=== PATIENT | female | born 1980 | race Hispanic/Latino ===

== ENCOUNTER 2023-10-25 10:06 | Emergency (ER) | payer SELFPAY ==
--- OUTSIDE RECORDS SUMMARY | 2023-10-25 10:10 | XMS REPORT | Continuity of Care Document ---
Author Name Unknown Address [address] [facility] [address] [place] [address] [facility] thconnect Address [address] [facility]. [address] [place] [address] Care Team Providers Care Live In Housekeeper Name Role Phone MERVAT SOLIS Primary Care Physician Unav ailable MAYA GARNETT Attending Clinician Unavailable Maya Garnett MD Attending Clinician [phone] MERVAT SOLIS Attending Clinician Unavail able Nurse, Oscar Rmchp Exp Cprit Obgyn Attending Clini girish Unavailable Irma WHMervat KATZ Attending Clinician + MAGGIE BLACKWOOD Attending Clinician Unavaila ble Doctor Unassigned, [place] Attending Clinician U navailable LEIF RICHARDSON Attending Clinician Unavailable Oscar Parkinson Db [facility] Attending Clinician Unavailab le Ebrahim VICE PRESIDENT FOR PHILANTHROPYLeif Fowler Attending Clinician NORA VALERA Attending Clinician Unavailable JONA KEITH Attending Clinician Unavailable Blair PAC, Camille S Attending Clinician CAMILLE BLAIR S Attending Clinician Unavailable MERVAT SOLIS Admitting Clinician Unavail able Payers Payer Name Policy Type Policy Number Effective Date Expirati on Date Source [id number] 2021 00:00:00 Problems Condition Name Condition Details Condition Category Status Onset Date Resolution Date Last Treatment Date Treating Clinician Comments Source Need for HPV vaccinatio n Need for HPV vaccinatio n Disease Active 07-19 00:00: 00 [facility] Other general counseling and advice for contracept jesus management Other general counseling and advice for contracept jesus management Disease Active 09-14 00:00: 00 [facility] Obesity (BMI 30-39.9) Obesity (BMI 30-39.9) Disease Active 09-14 00:00: 00 [facility] Elevated blood pressure reading without diagnosis of hypertensi on Elevated blood pressure reading without diagnosis of hypertensi on Disease Active 09-14 00:00: 00 [facility] Allergies, Adverse Reactions, Alerts Allergy Name Allergy Type Status Severity Reaction(s) Onset Date Inactive Date Treating Clinician Comments Source NO KNOWN ALLERGIE S Drug Class Active [facility] Social History Social Habit Start Date Stop Date Quantity Comments Source Gender identity [facility] Sexual orientation [facility] Alcohol intake 2023-10-25 00:00:00 2023-10-25 00:00:00 Ex-drinker (finding) [facility] Exposure to SARS-CoV-2 (event) 2022-12-16 00:00:00 2022-12-26 14:25:00 Not sure [facility] Tobacco Comment 2022-10-21 00:00:00 2022-10-21 00:00:00 Vapes daily per pt report [facility] Tobacco use and exposure 2022-10-21 00:00:00 2022-10-21 00:00:00 User of smokeless tobacco [facility] History of Social function 2022-07-29 00:00:00 2022-07-29 00:00:00 [facility] Sex Assigned At 1980 00:00:00 1980 00:00:00 [facility] Smoking Status Start Date Stop Date Source Never smoked tobacco [facility] Medications Ordered Medication Name Filled Medication Name Start Date Stop Date Current Medication? Ordering Clinician Indication Dosage Frequency Signature (SIG) Comments Components Source ibuprofen (IBU) tablet 800 mg 10-24 11:30: 00 10-24 11:24 :00 No 800mg 800 mg, Oral, ONCE, 1 dose, On Mon10/25/23 at 0630, [place] [facility] amoxicillin (TRIMOX) capsule 500 mg 10-24 11:30: 00 10-24 11:24 :00 No 500mg 500 mg, Oral, ONCE, 1 dose, On Mon10/25/23 at 0630, [place]
Re ason for Anti-Infec tive: Documented Infection< br>Documen adela Infection Site: HEENT
D uration of Therapy: Once (ED) [facility] traMADoL (ULTRAM) 50 mg tablet 10-24 00:00: 00 Yes [id number] 50mg Take 1 tablet by mouth every 6 (six) hours as needed for Pain (scale 7-10). Indication s: acute pain [facility] ibuprofen 800 mg tablet 10-24 00:00: 00 Yes [id number] 800mg Take 1 tablet by mouth every 8 (eight) hours as needed for Pain (scale 4-6). [facility] amoxicillin 500 mg capsule 10-24 00:00: 00 Yes [id number] 500mg Take 1 capsule by mouth in the morning and 1 capsule at noon and 1 capsule in the evening. [facility] etonogestre L (NEXPLANON) implant 68 mg 12-26 21:00: 00 12-26 20:31 :00 No [id number] [facility] 400 mg tablet 10-25 00:00: 00 11-05 04:59 :00 No [id number] 400mg Take 1 tablet by mouth in the morning and 1 tablet at noon and 1 tablet in the evening. Do all this for 10 days. [facility] medroxyPROG ESTERone (DEPO-PROVE RA) syringe 150 mg 10-21 17:00: 00 10-21 16:28 :00 No [id number] [facility] cephALEXin (KEFLEX) 500 mg capsule 10-21 00:00: 00 11-01 04:59 :00 No [id number] 500mg Take 1 capsule by mouth 4 (four) times daily for 10 days. [facility] medroxyPROG ESTERone (DEPO-PROVE RA) syringe 150 mg - 16:00: 00 07-29 15:22 :00 No [id number] 150mg [facility] metroNIDAZO LE 500 mg tablet 09-21 00:00: 00 Yes [id number] 500mg Take 1 tablet by mouth 2 (two) times daily. [facility] medroxyPROG ESTERone (DEPO-PROVE RA) injection 150 mg 09-14 16:00: 00 08-16 15:59 :00 No [id number] 150mg [facility] amoxicillin -clavulanat e (AUGMENTIN) 875-125 mg per tablet 09-14 00:00: 00 09-25 05:59 :00 No [id number] 1{tbl} Take 1 tablet by mouth 2 (two) times daily for 10 days. [facility] Immunizations Ordered Immunization Name Filled Immunization Name Date Status Comments Source HPV9 2023-02-07 00:00:00 Completed [facility] HPV9 2023-02-07 00:00:00 Completed [facility] HPV9 2022-12-26 00:00:00 Completed [facility] HPV9 2022-12-26 00:00:00 Completed [facility] HPV9 2022-12-26 00:00:00 Completed [facility] HPV9 2022-12-26 00:00:00 Completed [facility] HPV9 2022-12-26 00:00:00 Completed [facility] Influenza Virus Vaccine Quad .5 mL IM 6+ MO 2022-10-21 00:00:00 Completed [facility] Influenza Virus Vaccine Quad .5 mL IM 6+ MO 2022-10-21 00:00:00 Completed [facility] Influenza Virus Vaccine Quad .5 mL IM 6+ MO 2022-10-21 00:00:00 Completed [facility] Influenza Virus Vaccine Quad .5 mL IM 6+ MO 2022-10-21 00:00:00 Completed [facility] Influenza Virus Vaccine Quad .5 mL IM 6+ MO 2022-10-21 00:00:00 Completed [facility] Influenza Virus Vaccine Quad .5 mL IM 6+ MO 2022-10-21 00:00:00 Completed [facility] Influenza Virus Vaccine Quad .5 mL IM 6+ MO 2022-10-21 00:00:00 Completed [facility] Influenza Virus Vaccine Quad .5 mL IM 6+ MO 2022-10-21 00:00:00 Completed [facility] Influenza Virus Vaccine Quad .5 mL IM 6+ MO 2022-10-21 00:00:00 Completed [facility] Influenza Virus Vaccine Quad .5 mL IM 6+ MO 2022-10-21 00:00:00 Completed [facility] Influenza Virus Vaccine Quad .5 mL IM 6+ MO 2022-10-21 00:00:00 Completed [facility] Influenza Virus Vaccine Quad .5 mL IM 6+ MO 2021-09-14 00:00:00 Completed [facility] Influenza Virus Vaccine Quad .5 mL IM 6+ MO 2021-09-14 00:00:00 Completed [facility] Influenza Virus Vaccine Quad .5 mL IM 6+ MO 2021-09-14 00:00:00 Completed [facility] Influenza Virus Vaccine Quad .5 mL IM 6+ MO 2021-09-14 00:00:00 Completed [facility] Influenza Virus Vaccine Quad .5 mL IM 6+ MO 2021-09-14 00:00:00 Completed [facility] Influenza Virus Vaccine Quad .5 mL IM 6+ MO 2021-09-14 00:00:00 Completed [facility] Influenza Virus Vaccine Quad .5 mL IM 6+ MO 2021-09-14 00:00:00 Completed [facility] Influenza Virus Vaccine Quad .5 mL IM 6+ MO 2021-09-14 00:00:00 Completed [facility] Influenza Virus Vaccine Quad .5 mL IM 6+ MO 2021-09-14 00:00:00 Completed [facility] Influenza Virus Vaccine Quad .5 mL IM 6+ MO 2021-09-14 00:00:00 Completed [facility] Influenza Virus Vaccine Quad .5 mL IM 6+ MO 2021-09-14 00:00:00 Completed [facility] Influenza Virus Vaccine Quad .5 mL IM 6+ MO 2021-09-14 00:00:00 Completed [facility] Influenza Virus Vaccine Quad .5 mL IM 6+ MO 2021-09-14 00:00:00 Completed [facility] Influenza Virus Vaccine Quad .5 mL IM 6+ MO 2021-09-14 00:00:00 Completed [facility] Influenza Virus Vaccine Quad .5 mL IM 6+ MO 2021-09-14 00:00:00 Completed [facility] Influenza Virus Vaccine Quad .5 mL IM 6+ MO 2021-09-14 00:00:00 Completed [facility] Influenza Virus Vaccine Quad .5 mL IM 6+ MO 2021-09-14 00:00:00 Completed [facility] SARS-COV-2 COVID-19 MODERNA BOOSTER VACCINE 2021-06-19 00:00:00 Completed [facility] SARS-COV-2 COVID-19 MODERNA 0.25ML BOOSTER VACCINE 2021-06-19 00:00:00 Completed [facility] SARS-COV-2 COVID-19 MODERNA 0.25ML BOOSTER VACCINE 2021-06-19 00:00:00 Completed [facility] SARS-COV-2 COVID-19 MODERNA 0.25ML BOOSTER VACCINE 2021-06-19 00:00:00 Completed [facility] SARS-COV-2 COVID-19 MODERNA 0.25ML BOOSTER VACCINE 2021-06-19 00:00:00 Completed [facility] SARS-COV-2 COVID-19 MODERNA 0.25ML BOOSTER VACCINE 2021-06-19 00:00:00 Completed [facility] SARS-COV-2 COVID-19 MODERNA 0.25ML BOOSTER VACCINE 2021-06-19 00:00:00 Completed [facility] SARS-COV-2 COVID-19 MODERNA 0.25ML BOOSTER VACCINE 2021-06-19 00:00:00 Completed [facility] SARS-COV-2 COVID-19 MODERNA 0.25ML BOOSTER VACCINE 2021-06-19 00:00:00 Completed [facility] SARS-COV-2 COVID-19 MODERNA 0.25ML BOOSTER VACCINE 2021-06-19 00:00:00 Completed [facility] SARS-COV-2 COVID-19 MODERNA 0.25ML BOOSTER VACCINE 2021-06-19 00:00:00 Completed [facility] SARS-COV-2 COVID-19 MODERNA 0.25ML BOOSTER VACCINE 2021-06-19 00:00:00 Completed [facility] SARS-COV-2 COVID-19 MODERNA 0.25ML BOOSTER VACCINE 2021-06-19 00:00:00 Completed [facility] SARS-COV-2 COVID-19 MODERNA 0.25ML BOOSTER VACCINE 2021-06-19 00:00:00 Completed [facility] SARS-COV-2 COVID-19 MODERNA 0.25ML BOOSTER VACCINE 2021-06-19 00:00:00 Completed [facility] SARS-COV-2 COVID-19 MODERNA 0.25ML BOOSTER VACCINE 2021-06-19 00:00:00 Completed [facility] SARS-COV-2 COVID-19 MODERNA 0.25ML BOOSTER VACCINE 2021-06-19 00:00:00 Completed [facility] SARS-COV-2 COVID-19 VACCINE - (MODERNA) 2020-11-21 00:00:00 Completed [facility] SARS-COV-2 COVID-19 VACCINE - (MODERNA) 2020-11-21 00:00:00 Completed [facility] SARS-COV-2 COVID-19 VACCINE - (MODERNA) 2020-11-21 00:00:00 Completed [facility] SARS-COV-2 COVID-19 VACCINE - (MODERNA) 2020-11-21 00:00:00 Completed [facility] SARS-COV-2 COVID-19 VACCINE - (MODERNA) 2020-11-21 00:00:00 Completed [facility] SARS-COV-2 COVID-19 VACCINE - (MODERNA) 2020-11-21 00:00:00 Completed [facility] SARS-COV-2 COVID-19 VACCINE - (MODERNA) 2020-11-21 00:00:00 Completed [facility] SARS-COV-2 COVID-19 VACCINE - (MODERNA) 2020-11-21 00:00:00 Completed [facility] SARS-COV-2 COVID-19 VACCINE - (MODERNA) 2020-11-21 00:00:00 Completed [facility] SARS-COV-2 COVID-19 VACCINE - (MODERNA) 2020-11-21 00:00:00 Completed [facility] SARS-COV-2 COVID-19 VACCINE - (MODERNA) 2020-11-21 00:00:00 Completed [facility] SARS-COV-2 COVID-19 MODERNA VACCINE 2020-09-23 00:00:00 Completed [facility] SARS-COV-2 COVID-19 MODERNA VACCINE 2020-09-23 00:00:00 Completed [facility] SARS-COV-2 COVID-19 MODERNA 12+ YRS VACCINE 2020-09-23 00:00:00 Completed [facility] SARS-COV-2 COVID-19 MODERNA 12+ YRS VACCINE 2020-09-23 00:00:00 Completed [facility] SARS-COV-2 COVID-19 MODERNA 12+ YRS VACCINE 2020-09-23 00:00:00 Completed [facility] SARS-COV-2 COVID-19 MODERNA 12+ YRS VACCINE 2020-09-23 00:00:00 Completed [facility] SARS-COV-2 COVID-19 MODERNA 12+ YRS VACCINE 2020-09-23 00:00:00 Completed [facility] SARS-COV-2 COVID-19 MODERNA 12+ YRS VACCINE 2020-09-23 00:00:00 Completed [facility] SARS-COV-2 COVID-19 MODERNA 12+ YRS VACCINE 2020-09-23 00:00:00 Completed [facility] SARS-COV-2 COVID-19 MODERNA 12+ YRS VACCINE 2020-09-23 00:00:00 Completed [facility] SARS-COV-2 COVID-19 MODERNA 12+ YRS VACCINE 2020-09-23 00:00:00 Completed [facility] SARS-COV-2 COVID-19 MODERNA 12+ YRS VACCINE 2020-09-23 00:00:00 Completed [facility] SARS-COV-2 COVID-19 MODERNA 12+ YRS VACCINE 2020-09-23 00:00:00 Completed [facility] SARS-COV-2 COVID-19 MODERNA 12+ YRS VACCINE 2020-09-23 00:00:00 Completed [facility] SARS-COV-2 COVID-19 MODERNA 12+ YRS VACCINE 2020-09-23 00:00:00 Completed [facility] SARS-COV-2 COVID-19 MODERNA 12+ YRS VACCINE 2020-09-23 00:00:00 Completed [facility] SARS-COV-2 COVID-19 MODERNA 12+ YRS VACCINE 2020-09-23 00:00:00 Completed [facility] SARS-COV-2 COVID-19 MODERNA 12+ YRS VACCINE Unknown Completed [facility] SARS-COV-2 COVID-19 MODERNA 0.25ML BOOSTER VACCINE Unknown Completed [facility] Influenza Virus Vaccine Quad .5 mL IM 6+ MO (FLUZONE/FLULAVAL/F LUARIX) Unknown Completed [facility] SARS-COV-2 COVID-19 VACCINE - (MODERNA) Unknown Completed [facility] Influenza Virus Vaccine Quad .5 mL IM 6+ MO (FLUZONE/FLULAVAL/F LUARIX) Unknown Completed [facility] HPV9 Unknown Completed [facility] HPV9 Unknown Completed [facility] HPV9 Unknown Completed [facility] SARS-COV-2 COVID-19 MODERNA 12+ YRS VACCINE Unknown Completed [facility] SARS-COV-2 COVID-19 MODERNA 0.25ML BOOSTER VACCINE Unknown Completed [facility] Influenza Virus Vaccine Quad .5 mL IM 6+ MO (FLUZONE/FLULAVAL/F LUARIX) Unknown Completed [facility] SARS-COV-2 COVID-19 VACCINE - (MODERNA) Unknown Completed [facility] Influenza Virus Vaccine Quad .5 mL IM 6+ MO (FLUZONE/FLULAVAL/F LUARIX) Unknown Completed [facility] HPV9 Unknown Completed [facility] HPV9 Unknown Completed [facility] HPV9 Unknown Completed [facility] Vital Signs Vital Name Observation Time Observation Value Comments S ource Systolic blood pressure 2023-10-25 11:06:00 179 mm[Hg] [facility] Diastolic blood pressure 2023-10-25 11:06:00 106 mm[Hg] [facility] Heart rate 2023-10-25 11:06:00 101 /min [facility] Body temperature 2023-10-25 11:06:00 37.61 [facility] Respiratory rate 2023-10-25 11:06:00 18 /min [facility] Body height 2023-10-25 11:06:00 167.6 cm [facility] Body weight 2023-10-25 11:06:00 99.791 [facility] BMI 2023-10-25 11:06:00 35.51 kg/m2 [facility] Oxygen saturation in Arterial blood by Pulse oximetry 2023-10-25 11:06:00 100 /min [facility] Body temperature 2023-07-19 15:16:00 36.11 [facility] Body temperature 2023-02-07 19:49:00 36.33 [facility] Systolic blood pressure 2022-12-26 19:39:00 141 mm[Hg] [facility] Diastolic blood pressure 2022-12-26 19:39:00 92 mm[Hg] [facility] Heart rate 2022-12-26 19:39:00 86 /min [facility] Body temperature 2022-12-26 19:39:00 35.39 [facility] Respiratory rate 2022-12-26 19:39:00 18 /min [facility] Body height 2022-12-26 19:39:00 167.6 cm [facility] Body weight 2022-12-26 19:39:00 114.216 kg [facility] BMI 2022-12-26 19:39:00 40.64 kg/m2 [facility] Systolic blood pressure 2022-10-21 15:52:00 141 mm[Hg] [facility] Diastolic blood pressure 2022-10-21 15:52:00 84 mm[Hg] [facility] Heart rate 2022-10-21 15:52:00 66 /min [facility] Body temperature 2022-10-21 15:52:00 35.67 Nori [facility] Respiratory rate 2022-10-21 15:52:00 18 /min [facility] Body height 2022-10-21 15:52:00 167.6 cm [facility] Body weight 2022-10-21 15:52:00 112.583 [facility] BMI 2022-10-21 15:52:00 40.06 kg/m2 [facility] Systolic blood pressure 2022-07-29 14:27:00 118 mm[Hg] [facility] Diastolic blood pressure 2022-07-29 14:27:00 83 mm[Hg] [facility] Heart rate 2022-07-29 14:27:00 65 /min [facility] Body temperature 2022-07-29 14:27:00 35.89 Nori [facility] Respiratory rate 2022-07-29 14:27:00 18 /min [facility] Body height 2022-07-29 14:27:00 167.6 cm [facility] Body weight 2022-07-29 14:27:00 107.644 kg [facility] BMI 2022-07-29 14:27:00 38.30 kg/m2 [facility] Systolic blood pressure 2022-05-31 22:04:00 152 mm[Hg] [facility] Diastolic blood pressure 2022-05-31 22:04:00 90 mm[Hg] [facility] Heart rate 2022-05-31 22:04:00 85 /min [facility] Body temperature 2022-05-31 22:03:00 36.33 Nori [facility] Respiratory rate 2022-05-31 22:03:00 18 /min [facility] Body height 2022-05-31 22:03:00 167.6 cm [facility] Body weight 2022-05-31 22:03:00 104.129 [facility] BMI 2022-05-31 22:03:00 37.05 kg/m2 [facility] Procedures Procedure Date / Time Performed Performing Clinician Source GARDASIL 9 (HPV 9V) VACCINE 2023-07-19 15:15:39 Mervat Solis [facility] GARDASIL 9 (HPV 9V) VACCINE 2023-02-07 19:44:59 Mervat Solis [facility] GARDASIL 9 (HPV 9V) VACCINE 2022-12-26 20:18:04 Mervat Solis [facility] POCT TEST 2022-12-26 19:45:00 Dariusz Solis [facility] CONSENT FOR CONTRACEPTION 2022-12-26 05:01:00 Doctor Unassigned, [place] [facility] "[facility] ONLY" FLU VACC(), 6+ MONTHS, IM, QUAD (FLUZONE/FLULAVAL/FLUARI X) 2022-10-21 16:19:12 Mervat Solis [facility] POCT TEST 2022-07-29 14:28:00 Dariusz Solis [facility] POCT TEST 2022-05-31 22:30:00 Dariusz Solis [facility] Plan of Care Planned Activity Planned Date Details Comments Source Encounters Start Date/Time End Date/Time Encounter Type Admission Type Attending Clinicians Care Facility Care Department Encounter ID Source 2023-10-25 06:08:00 2023-10-25 06:42:00 Emergency X MAYA GARNETT [facility] ERT [id number] [facility] 2023-10-25 06:08:00 2023-10-25 06:42:00 Emergency Maya Garnett [facility] 1..840.114 [id number] [id number] [facility] 2023-07-19 09:00:00 2023-07-19 09:15:20 Outpatient R MERVAT SOLIS [facility] [id number] [facility] 2023-07-19 09:00:00 2023-07-19 09:15:20 Nurse Visit Nurse, Oscar Rmchp Exp Cprit Mervat Marte [facility] POWER EQUIPMENT TECHNOLOGY INSTRUCTOR [facility] CHILD [facility] 1..840.114 [id number] [id number] [id number] [facility] 2023-07-14 15:00:00 2023-07-14 15:00:00 Outpatient R [facility] [id number] [facility] 2023-02-07 14:30:00 2023-02-07 14:48:59 Nurse Visit Nurse, Oscar Rmchp Exp Cprit Mervat Marte [facility] POWER EQUIPMENT TECHNOLOGY INSTRUCTOR [facility] 1..840.114 [id number] [id number] [id number] [facility] 2023-02-07 14:30:00 2023-02-07 14:48:59 Outpatient R MERVAT SOLIS [facility] [id number] [facility] 2023-02-07 14:30:00 2023-02-07 14:30:00 Outpatient R MERVAT SOLIS [facility] [id number] [facility] 2023-01-30 15:00:00 2023-01-30 15:00:00 Outpatient R [facility] [id number] [facility] 2023-01-12 15:00:00 2023-01-12 15:00:00 Outpatient R PICKMAGGIE VILLAFUERTE [facility] [id number] [facility] 2022-12-26 14:30:00 2022-12-26 15:25:01 Outpatient R MERVAT SOLIS [facility] [id number] [facility] 2022-12-26 14:30:00 2022-12-26 15:25:01 Office Visit Mervat Solis [facility] POWER EQUIPMENT TECHNOLOGY INSTRUCTOR [facility] & CHILD [facility] [id number] [id number] [id number] [id number] [facility] 2022-12-26 00:00:00 2022-12-26 00:00:00 Orders Only Doctor Unassigned, [place] [facility] 1.84.114 350.1.13.10 [id number] [id number] [facility] 2022-11-29 06:57:24 2022-11-29 23:59:00 Outpatient R MERVAT SOLIS [facility] [id number] [facility] 2022-11-29 06:57:24 2022-11-29 23:59:00 Hospital Encounter Mervat Solis [facility] 1.84.114 [id number] [id number] [id number] [facility] 2022-11-29 00:00:00 2022-11-29 00:00:00 Telephone Mervat Solis [facility] POWER EQUIPMENT TECHNOLOGY INSTRUCTOR [facility] CHILD [facility] 1.84.114 [id number] [id number] [id number] [facility] 2022-11-16 09:00:00 2022-11-16 09:00:00 Outpatient R MERVAT SOLIS [facility] [id number] [facility] 2022-10-27:30:00 2022-10-27 10:30:00 Outpatient R MERVAT SOLIS [facility] [id number] [facility] 2022-10-25 00:00:00 2022-10-25 00:00:00 Telephone Mervat Solis [facility] POWER EQUIPMENT TECHNOLOGY INSTRUCTOR [facility] CHILD [facility] [id number] [id number] [id number] [facility] 2022-10-21 10:30:00 2022-10-21 11:36:49 Outpatient R MERVAT SOLIS [facility] [id number] [facility] 2022-10-21 10:30:00 2022-10-21 11:36:49 Office Visit Mervat Solis [facility] POWER EQUIPMENT TECHNOLOGY INSTRUCTOR [facility] CHILD [facility] [id number] [id number] [id number] [facility] 2022-07-29 08:15:00 2022-07-29 09:11:00 Outpatient R MERVAT SOLIS [facility] [id number] [facility] 2022-07-29 08:15:00 2022-07-29 09:11:00 Office Visit Mervat Solis [facility] POWER EQUIPMENT TECHNOLOGY INSTRUCTOR [facility] CHILD [facility] [id number] [id number] [facility] 2022-06-20 10:00:00 2022-06-20 10:00:00 Outpatient R MERVAT SOLIS [facility] [id number] [facility] [facility] 2022-06-20 10:00:00 2022-06-20 10:00:00 Outpatient R MERVAT SOLIS [facility] [id number] [facility] 2022-05-31 16:00:00 2022-05-31 16:18:34 Outpatient R MERVAT SOLIS [facility] [id number] [facility] 2022-05-31 16:00:00 2022-05-31 16:18:34 Office Visit Mervat Solis [facility] [employer] [facility] & [facility]ILD [facility] [id number] 350.1.13.10 4.2.7.2.686 [id number] [facility] 2021-12-15 13:15:00 2021-12-15 13:15:00 Outpatient R MERVAT SOLIS [facility] [id number] [facility] 2021-11-24 06:39:14 2021-11-24 23:59:00 Outpatient R MERVAT SOLIS [facility] [id number] [facility] 2021-11-24 06:39:14 2021-11-24 23:59:00 Hospital Encounter Mervat Solis [facility] 1.0.114 350.1.13.10 4.2.7.2.686 [id number] [facility] 2021-11-24 00:00:00 2021-11-24 00:00:00 Outpatient R MERVAT SOLIS [facility] [id number] [facility] 2021-09-21 00:00:00 2021-09-21 00:00:00 Telephone Mervat Solis [facility] [employer] TECHNOLOGY INSTRUCTOR [facility] CHILD [facility] 1.840.114 350.1.13.10 4.2.7.2.686 [id number] [facility] 2021-09-14 09:00:00 2021-09-14 10:17:31 Office Visit Mervat Solis [facility] [employer] INSTRUCTOR [facility] CHILD [facility] [id number] 350.1.13.10 4.2.7.2.686 [id number] [facility] 2021-09-14 09:00:00 2021-09-14 10:17:31 Outpatient R IRMA MERVAT [facility] [id number] [facility] 2021-09-14 09:00:00 2021-09-14 09:00:00 Outpatient R MERVAT SOLIS [facility] [id number] [facility] 2021-09-14 00:00:00 2021-09-14 00:00:00 Orders Only Doctor Unassigned, [place] [facility] 1..840.114 350.1.13.10 4.2.7.2.686 [id number] [facility] 2021-06-19 14:40:00 2021-06-19 15:06:28 Outpatient LEIF SHIN [facility] [id number] [facility] 2021-06-19 14:41:25 2021-06-19 14:51:25 Imm/Inj Visit Tesha, Ang Db Angel Richardson [facility] 1..840.114 350.1.13.10 4.2.7.2.686 [id number] [facility] 2020-11-06 12:30:00 2020-11-06 12:30:00 Outpatient R NORA VALERA [facility] [id number] [facility] 2020-10-28 07:30:00 2020-10-28 07:30:00 Outpatient R NORA VALERA [facility] [id number] [facility] 2020-10-21 13:40:00 2020-10-21 13:40:00 Outpatient R JONA KEITH [facility] [id number] [facility] 2020-10-06 14:41:00 2020-10-06 14:56:00 Office Visit Camille lBair [facility] 1.2.840.114 350.1.13.10 4.2.7.2.686 [id number] [facility] 2020-10-06 14:30:00 2020-10-06 14:30:00 Outpatient [facility] [id number] [facility] 2020-10-06 00:00:00 2020-10-06 00:00:00 Telephone Isma [facility] Special[facility] yarelis [place] 1.2.840.114 350.1.13.10 4.2.7.2.686 [id number] [facility] 2020-10-06 00:00:00 2020-10-06 00:00:00 Telephone Isma [facility] 1.2.840.114 350.1.13.10 4.2.7.2.686 [id number] [facility] 2020-09-23 13:40:00 2020-09-23 13:40:00 Outpatient R JONA KEITH [facility] [id number] [facility] 2020-09-23 10:10:00 2020-09-23 10:10:00 Outpatient [facility] [id number] [facility] 2020-01-05 02:12:34 2020-01-05 04:15:00 Emergency Maya Garnett [facility] 1.2.840.114 350.1.13.10 4.2.7.2.686 [id number] [facility] 2020-01-05 02:12:34 2020-01-05 02:12:34 Emergency X MAYA GARNETT [facility] ERT [id number] [facility] Results Test Description Test Time Test Comments Results Result Co [id number] 19:45:00* Test Item Value Reference Range Interpretation Comme nts POCT PREG (test code = 1605) Negative On board controls acceptable with C Line (test code = 3574) Yes POCT PREG LOT # (test code = 3575) POCT PREG TEST DATE ( test code = 3576) [facility] [id number] 14:29:00* Test Item Value Reference Range Interpretation Comme nts POCT PREG (test code = 1605) Negative On board controls acceptable with C Line (test code = 3574) Yes POCT PREG LOT # (test code = 3575) POCT PREG TEST DATE ( test code = 3576) [facility] [id number] 14:29:00* Test Item Value Reference Range Interpretation Comme nts POCT PREG (test code = 1605) Negative On board controls acceptable with C Line (test code = 3574) Yes POCT PREG LOT # (test code = 3575) POCT PREG TEST DATE ( test code = 3576) [facility] [id number] 22:31:00* Test Item Value Reference Range Interpretation Comme nts POCT PREG (test code = 1605) Negative On board controls acceptable with C Line (test code = 3574) Yes POCT PREG LOT # (test code = 3575) POCT PREG TEST DATE ( test code = 3576) [facility] [id number] 22:31:00* Test Item Value Reference Range Interpretation Comme nts POCT PREG (test code = 1605) Negative On board controls acceptable with C Line (test code = 3574) Yes POCT PREG LOT # (test code = 3575) POCT PREG TEST DATE ( test code = 3576) [facility] Notes Date/Time Note Provider Source 2023-10-25 06:34:16 Xh40DncVkd6IuYg6RKUg h6ZtzfuTn8nOun GFPaAjKNXppkIVV1sTZ2SSk7NYRzkR1103 -04-10T06:34:16 Awake, alert oriented X4, respiratory even and unlabored,skin w/d color appropriate for race, moves all ext well, pt encouraged to follow up with pcp and or return as neededPt given printed and verbal discharge instructions regarding Periapical absences, elevated blood pressure reading without diagnosis of hypertension , patient verbralized understanding and signature obtained, patient denies any other concerns.Prescriptions providedDiscussed antibiotic therapy and to take until all completed unless adverse reaction occurs - if occurs, discontinue medication and follow up with pcp/seek medical attentionDiscussed Ultram side affects and to avoid driving/operating machinery/or engaging in activities requiring alertness while taking.Advised to seek medical attention for new/prolonged/worsening of symptoms,No adverse reaction to meds given in ER noted upon dischargePt ambulated to the [facility] with steady gait 09455-7Nqmyhtlcy department ExelGS3465-91-69D04:35:39[facility] NoteTXT1.2.840.174944.1.13.104.2.7 .2.205048|[id number] for patient dkng97709-9OiggBKBMDFYAKMXEiourlqm d C-CDA narrative text[address] Qg[id number] 30PFWYSANQBMQBREDQGRFOJR5870-73-55 T06:35:391.2.840.681225.1.72.3.15| 1.2.840.016676.1.13.104.2.7.2.7278 [id number] [facility] 2023-10-25 06:12:36 bFLjzTnWZV7FGTV/9L4B jm1g0FDKVbGeQV 9ktqHvdy86vh+TxfTi7HV6KfIcnG7S6965 -04-10T06:12:36 Pt given dental resources for [facility]. 63678-7Bvyikzxyn department JvysUJ1614-29-23E26:13:11[facility] NoteTXT1.2.840.276083.1.13.104.2.7 .2.863850|[id number] for patient aqvt64511-0MlkqJYQMZLHWOWLRcoifvgb d C-CDA narrative text[id number] 59UXVHDNJYRPHVPAMJNGRCRP9891-24-03 T06:13:111.2.840.376975.1.72.3.15| 1.2.840.185951.1.13.104.2.7.2.7278 [id number] [facility] 2023-10-25 06:05:46 oOIop7hudJu74Gk5HOe8 0vMfYTI9044IcQ 2l/7EkmzQMwhBES7pGgSXN53zONJ5U1885 -04-10T06:05:46 Upper tooth pain for 2 days. 04659-8Ohrnjuadg department Triage ndpwVN5135-32-74L18:05:58[facility] Triage noteTXT1.2.840.918823.1.13.104.2.7 .2.326048|[id number] for patient mkir79941-3Rxataazvj department NoteLNNARRATIVEFormatted C-CDA narrative [id number] J Hoot RNUT51 [address] [id number] 71RHPIXLSTUQHJLHKRPOKOAC0938-33-72 T06:05:581.2.840.827450.1.72.3.15| 1.2.840.068712.1.13.104.2.7.2.7278 [id number] Lily Jones RN [facility]
[2023-10-25] MEDS ORDERED: methocarbamoL 750 MG TAB ONE (11:06)
[2023-10-25] MEDS ORDERED: KETOROLAC 30 MG/ML INJ ONE (11:07)
--- NOTE | 2023-10-25 11:41 | RAD REPORT ---
EXAM DESCRIPTION: RAD - Thoracic Spine Ap/Lat - 10/25/2023 11:34 am CLINICAL HISTORY: PAIN Radiculopathy COMPARISON: No comparisons FINDINGS: The thoracic spine vertebral body heights are maintained. Mild generalized disc thinning i s seen midthoracic spine. No acute compression fracture. Subtle levoscoliosis of the lower thoracic s pine. IMPRESSION: Mild generalized thoracic spondylosis without acute process.
--- NOTE | 2023-10-25 11:43 | RAD REPORT ---
EXAM DESCRIPTION: RAD - Lumbar Spine 3 Views - 10/25/2023 11:34 am CLINICAL HISTORY: PAIN Radiculopathy COMPARISON: No comparisons FINDINGS: Vertebral body heights appear maintained. No compression fracture noted. Disc thinning wit h small posterior osteophytes are present lower lumbar levels. No spondylolysis or spondylolisthesis. IMPRESSION: Mild lower lumbar spondylosis.
[2023-10-25] MEDS ORDERED: MORPHINE 4 MG/ML SYR ONE (12:18)
--- NOTE | 2023-10-25 13:16 | ER ---
Nurse's Notes [facility] Name: Lalitha Redmond Age: 43 yrs Sex: Female : 1980 Arrival Date: 10/25/2023 Time: 10:06 Bed 20 Private MD: Diagnosis: Low back pain Presentation: 10/24 10:27 Chief complaint: Patient states: Was lifting crates at work earlier today and felt a nj1 severe pain in her back. Hurting since, tried tylenol with no relief. Coronavirus screen: Vaccine status: Patient reports receiving the 2nd dose of the covid vaccine. Ebola Screen: Patient denies travel to an Ebola-affected area in the 21 days before illness onset. Initial Sepsis Screen: Does the patient meet any 2 criteria? No. Patient's initial sepsis screen is negative. Does the patient have a suspected source of infection? No. Patient's initial sepsis screen is negative. Risk Assessment: Do you want to hurt yourself or someone else? Patient reports no desire to harm self or others. Onset of symptoms was October 25, 2023. 10:27 Method Of Arrival: Ambulatory [facility] 10:27 Acuity: CATINA 3 nj1 Historical: - Allergies: 10:34 No Known Allergies; nj1 - PMHx: 10:34 None; nj1 - Immunization history:: Client reports receiving the 2nd dose of the Covid vaccine. - Infectious Disease History:: Denies. - Social history:: Smoking status: Patient denies any tobacco usage or history of. Screenin:27 [facility] ED Fall Risk Assessment (Adult) History of falling in the last 3 months, ld1 including since admission No falls in past 3 months (0 pts). Abuse screen: Denies threats or abuse. Denies injuries from another. Nutritional screening: No deficits noted. Tuberculosis screening: No symptoms or risk factors identified. Assessment: 11:27 General: Appears in no apparent distress. uncomfortable, Behavior is calm, cooperative, ld1 appropriate for age. Pain: Complains of pain in back Pain does not radiate. Pain currently is 8 out of 10 on a pain scale. Quality of pain is described as sharp, shooting, throbbing, Pain began suddenly, Is continuous. Neuro: Level of Consciousness is awake, alert, obeys commands, Oriented to person, place, time, situation, Appropriate for age. Cardiovascular: Capillary refill < 3 seconds Patient's skin is warm and dry. Respiratory: Airway is patent Respiratory effort is even, unlabored. GI: Abdomen is round non-distended. : No signs and/or symptoms were reported regarding the genitourinary system. EENT: No signs and/or symptoms were reported regarding the EENT system. Derm: No signs and/or symptoms reported regarding the dermatologic system. Musculoskeletal: No signs and/or symptoms reported regarding the musculoskeletal system. 12:25 General: Appears uncomfortable. Pain: Complains of pain in back. as6 Vital Signs: 10:27 BP 182 / 103; Pulse 82; Resp 18; Temp 97.8(TE); Pulse Ox 99% on R/A; Weight 104.33 kg; nj1 Height 5 ft. 6 in. ; Pain 10/10; 11:27 BP 172 / 98; Pulse 79; Resp 18; Pulse Ox 100% on R/A; Pain 8/10; ld1 12:22 BP 144 / 85; Pulse 74; Resp 16 S; Pulse Ox 100% on R/A; as6 10:27 Body Mass Index 37.12 (104.33 kg, 167.64 cm) nj1 10:27 Pain Scale: Adult nj1 11:27 Pain Scale: Adult ld1 ED Course: 10:08 Patient arrived in ED. mr 10:29 Gurjit Desai is Attending Physician. ci 10:34 Triage completed. nj1 10:34 Arm band placed on. nj1 10:39 Dilcia Shaw, YAKELIN is Primary Nurse. ld1 11:27 Patient has correct armband on for positive identification. Placed in gown. Bed in low ld1 position. Call light in reach. Side rails up X2. mop maker on. Pulse ox on. NIBP on. Door closed. Noise minimized. Warm blanket given. 11:27 No provider procedures requiring assistance completed. ld1 11:36 XRAY Lumbar Spine (3 Views) In Process Unspecified. EDMS 11:36 XRAY Thoracic Spine (Ap/lat) In Process Unspecified. EDMS 12:27 PO fluids given. as6 13:25 Provided Education on: follow up. as6 13:26 Patient did not have IV access during this emergency room visit. as6 Administered Medications: 11:16 Drug: Ketorolac IM 30 mg IM once Route: IM; Site: right deltoid; ll1 13:26 Follow up: Response: No adverse reaction as6 11:16 Drug: Methocarbamol PO 750 mg PO once Route: PO; ll1 13:26 Follow up: Response: No adverse reaction as6 12:21 Drug: morphine IM 4 mg IM once Route: IM; Site: left deltoid; as6 13:26 Follow up: Response: No adverse reaction as6 Medication: 11:27 VIS not applicable for this client. ld1 Outcome: 13:15 Discharge ordered by . ci 13:25 Discharged to home ambulatory, as6 13:25 Condition: stable 13:25 Discharge instructions given to patient, Instructed on discharge instructions, follow up and referral plans. medication usage, Demonstrated understanding of instructions, follow-up care, medications, Prescriptions given X 3, 13:26 Patient left the ED. as6 Signatures: Dispatcher [employer] EDMS April Redmond, Alejandro Allen mr Nancy Casas RN RN ll1 Dilcia Shaw RN RN ld1 Bjorn Shaikh RN RN as6 Margo Francois RN RN nj1 Gurjit Desai ci
--- NOTE | 2023-10-25 13:16 | EDPHYS ---
Physician Documentation [facility] Name: Lalitha Redmond Age: 43 yrs Sex: Female : 1980 Arrival Date: 10/25/2023 Time: 10:06 Bed 20 Private MD: ED Physician Gurjit Desai HPI: 10/24 13:10 This 43 yrs old Female presents to ER via Ambulatory with complaints of Back ci Pain. 13:10 Patient is a 43-year-old female with no PMH who presents with acute onset back pain ci that began after she lifted a crate at work. Did not hear a pop or crack. Pain is sharp, radiates from low back to mid back. Denies paresthesias. No bowel/bladder dysfunction. No IVDU, fever. Historical: - Allergies: 10:34 No Known Allergies; nj1 - PMHx: 10:34 None; nj1 - Immunization history:: Client reports receiving the 2nd dose of the Covid vaccine. - Infectious Disease History:: Denies. - Social history:: Smoking status: Patient denies any tobacco usage or history of. ROS: 13:10 Constitutional: Negative for fever, chills, and weight loss, ci 13:10 Back: Positive for decreased range of motion, pain at rest, pain with movement, Exam: 13:10 Constitutional: This is a well developed, well nourished patient who is awake, alert, ci and in no acute distress. Head/Face: Normocephalic, atraumatic. Eyes: Pupils equal round and reactive to light, extra-ocular motions intact. Lids and lashes normal. Conjunctiva and sclera are non-icteric and not injected. Cornea within normal limits. Periorbital areas with no swelling, redness, or edema. ENT: Nares patent. No nasal discharge, no septal abnormalities noted. Tympanic membranes are normal and external auditory canals are clear. Oropharynx with no redness, swelling, or masses, exudates, or evidence of obstruction, uvula midline. Mucous membranes moist. Neck: Trachea midline, no thyromegaly or masses palpated, and no cervical lymphadenopathy. Supple, full range of motion without nuchal rigidity, or vertebral point tenderness. No Meningismus. Chest/axilla: Normal chest wall appearance and motion. Nontender with no deformity. No lesions are appreciated. Cardiovascular: Regular rate and rhythm with a normal S1 and S2. No gallops, murmurs, or rubs. Normal PMI, no JVD. No pulse deficits. Respiratory: Lungs have equal breath sounds bilaterally, clear to auscultation and percussion. No rales, rhonchi or wheezes noted. No increased work of breathing, no retractions or nasal flaring. Abdomen/GI: Soft, non-tender, with normal bowel sounds. No distension or tympany. No guarding or rebound. No evidence of tenderness throughout. 13:10 Back: vertebral tenderness, is appreciated at T11, T12, L1, L2, L3 and L4, Vital Signs: 10:27 BP 182 / 103; Pulse 82; Resp 18; Temp 97.8(TE); Pulse Ox 99% on R/A; Weight 104.33 kg; nj1 Height 5 ft. 6 in. ; Pain 10/10; 11:27 BP 172 / 98; Pulse 79; Resp 18; Pulse Ox 100% on R/A; Pain 8/10; ld1 12:22 BP 144 / 85; Pulse 74; Resp 16 S; Pulse Ox 100% on R/A; as6 10:27 Body Mass Index 37.12 (104.33 kg, 167.64 cm) nj1 10:27 Pain Scale: Adult nj1 11:27 Pain Scale: Adult ld1 MDM: 10:29 Patient medically screened. ci 13:10 Differential diagnosis: Fracture Ligament Injury ruptured disc, spinal injury, sprain. ci Data reviewed: vital signs, nurses notes. ED course: Back is atraumatic on exam. Patient has midline spinal tenderness to palpation. DTRs to lower extremity 5/5, she ambulates with a steady gait, low suspicion for cauda equina, spinal hematoma/abscess. X-rays with no acute findings. Patient's pain improved with pain meds. She is stable for discharge with close PCP follow-up.. 10/24 11:03 Order name: XRAY Lumbar Spine (3 Views); Complete Time: 11:45 ci 10/24 11:46 Interpretation: Abnormal: Per Radiologist's finding(s): IMPRESSION: Mild lower lumbar ci spondylosis. 10/24 11:03 Order name: XRAY Thoracic Spine (Ap/lat); Complete Time: 11:45 ci 10/24 11:46 Interpretation: Abnormal: Per Radiologist's finding(s): IMPRESSION: Mild generalized ci thoracic spondylosis without acute process. Administered Medications: 11:16 Drug: Ketorolac IM 30 mg IM once Route: IM; Site: right deltoid; ll1 13:26 Follow up: Response: No adverse reaction as6 11:16 Drug: Methocarbamol PO 750 mg PO once Route: PO; ll1 13:26 Follow up: Response: No adverse reaction as6 12:21 Drug: morphine IM 4 mg IM once Route: IM; Site: left deltoid; as6 13:26 Follow up: Response: No adverse reaction as6 Disposition Summary: 10/25/23 13:15 Discharge Ordered Notes: Location: Home ci Condition: Stable ci Diagnosis - Low back pain ci Followup: ci - With: Private Physician - When: 2 - 3 days - Reason: Recheck today's complaints, Re-evaluation by your physician Discharge Instructions: - Discharge Summary Sheet ci - Acute Back Pain, Adult ci - Musculoskeletal Pain ci Forms: - Medication Reconciliation Form ci - Thank You Letter ci - Antibiotic Education ci - Prescription Opioid Use ci - Patient Portal Instructions ci - Leadership Thank You Letter ci Prescriptions: - lidocaine 5 % adhesive patch, medicated - apply 1 patch TOPICAL route daily As needed leave on most painful area for up ci to 12 hrs; 30 patch; Refills: 0, Product Selection Permitted - Anaprox DS 550 mg Oral Tablet - take 1 tablet ORAL route every 12 hours As needed; 20 tablet; Refills: 0, ci Product Selection Permitted - Cyclobenzaprine 10 mg Oral tablet - take 1 tablet ORAL route every 8 hours As needed; 15 tablet; Refills: 0, ci Product Selection Permitted Signatures: Dispatcher [employer] Nancy Portillo RN RN ll1 Bjorn Shaikh RN RN as6 Margo Francois RN RN nj1 Gurjit Desai ci
[2023-10-25 15:07] VITALS: BP 144/85; TEMP 97.8; O2SAT 100
== END 2023-10-25 13:26 | disposition home or self-care (01) ==
LOC: ER 10:06
DX: M54.50 Low back pain, unspecified (principal)
CPT/HCPCS: 72070; 72100